=== PATIENT | male | born 2005 | race Caucasian/White ===

== ENCOUNTER 2024-05-04 14:33 | Emergency (ER) | payer MEDICAID ==
[~2024-05-04] VITALS: Ht 180.3 cm; Wt 86.2 kg
[2024-05-04 14:53] VITALS: O2SAT 98
[2024-05-04] MEDS: IBUPROFEN 600MG TABLET PO ONE (16:45)
[2024-05-04] MEDS ORDERED: IBUP-2029 MT (16:57)
[2024-05-04 16:59] VITALS: BP 114/54; PULSE 62; RESP 16; TEMP 36.83628; O2SAT 100
== END 2024-05-04 17:04 | disposition home or self-care (01) ==
LOC: ER 14:33
DX: M54.50 Low back pain, unspecified (principal)
CPT/HCPCS: 93005; 99283

== ENCOUNTER 2024-10-31 11:25 | Emergency (ER) | payer MEDICAID ==
[~2024-10-31] VITALS: Ht 180.3 cm; Wt 86.0 kg
[~2024-10-31 11:25] MED LIST: IBUP-2029 MT
[2024-10-31 11:32] VITALS: BP 151/79; TEMP 36.8; O2SAT 99
[2024-10-31 11:34] VITALS: PULSE 78; RESP 16; O2SAT 100
== END 2024-10-31 14:20 | disposition left against medical advice (07) ==
LOC: ER 11:25
DX: G50.1 Atypical facial pain (principal); Z53.21 Procedure and treatment not carried out due to patient leaving prior to being seen by health care provider

== ENCOUNTER 2025-06-05 22:20 | Emergency (ER) | payer MEDICAID ==
[~2025-06-05] VITALS: Ht 177.8 cm; Wt 91.0 kg
[~2025-06-05 22:20] MED LIST changes: +IBUP-1455 MT; -IBUP-2029 MT
[2025-06-05 23:17] VITALS: O2SAT 100
[2025-06-06] MEDS ORDERED: CLIN-194 MT (00:23)
[2025-06-06] MEDS ORDERED: AMOX1TAB16 MT (00:23)
[2025-06-06 00:44] VITALS: BP 121/68; PULSE 65; RESP 16; TEMP 36.6; O2SAT 100
== END 2025-06-06 00:47 | disposition home or self-care (01) ==
LOC: ER 22:20
DX: L03.213 Periorbital cellulitis (principal); Z79.899 Other long term (current) drug therapy
CPT/HCPCS: 99283